=== PATIENT | female | born 1995 | race Caucasian/White ===

== ENCOUNTER → 2020-07-11 07:31 | Outpatient (CLI) | payer BC, SELFPAY ==
--- NOTE | ~2020-07-11 | US_ITS ---
EXAMINATION: US right upper quadrant EXAM DATE: 07/11/2020 08:12 INDICATION: RUQ pain. TECHNIQUE: Multiple grayscale and Doppler images of the abdomen right upper quadrant were obtained (b y a technologist who performed the scan) and subsequently reviewed. Comparison is made to prior exami nation from 09/02/2016. FINDINGS: The pancreatic head and body are normal in appearance. The pancreatic tail is not visualized. The l iver has normal echogenicity and contour. Interval development of heterogeneous solid appearing region in the anterior aspect of the liver, amelia suring about 5.3 x 3.7 x 5.7 cm. Nonspecific liver lesion. This appears solid on ultrasound, an techn ologist also noted that patient had pain when scanning over the region. There is no evidence of intra hepatic biliary duct dilation. Portal venous flow was seen in the hepatopedal, normal direction and has normal Doppler waveform. No right-sided hydronephrosis. Common bile duct measures 3 mm, which is normal. The gallbladder wall is normal in thickness, with ex pected amount of distention. No sonographic evidence of pericholecystic fluid. There is no cholelit hiases. Technologist performing exam reports patient did not demonstrate sonographic Nesbitt's sign. Please note that this sign is less reliable in patients who have received pain medication. IMPRESSION: Interval development of 5 cm liver mass like region, differential diagnosis includes hepa tic adenoma, hemangioma, or possibly phlegmon or hepatocellular carcinoma. Lesions are nonspecific by ultrasound and dedicated MRI without and with contrast typically adds more specificity, is indicated . Reviewed, dictated and finalized at location A. ING MECHANIC IMPRESSION: Interval development of 5 cm liver mass like region, differential d iagnosis includes hepatic adenoma, hemangioma, or possibly phlegmon or hepatoce llular carcinoma. Lesions are nonspecific by ultrasound and dedicated MRI witho ut and with contrast typically adds more specificity, is indicated.
== END ==
PROVIDERS: Visit Provider Nurse Practitioner
DX: R10.11 Right upper quadrant pain (principal)
CPT/HCPCS: 76705

== ENCOUNTER → 2020-07-17 10:38 | Outpatient (CLI) | payer BC, SELFPAY ==
--- NOTE | ~2020-07-17 | MR_ITS ---
EXAMINATION: MR abdomen wo/w con DATE: 07/17/2020 11:28 INDICATION: Liver mass. TECHNIQUE: Magnetic resonance imaging (MRI) of the abdomen was performed without and with 15 mL Multi Pierre intravenous contrast. Sequences included coronal T2-weighted FS FSE, coronal and axial FS FIEST A, axial T2-weighted FSE, coronal LAVA-flex, axial STIR FSE, axial DWI, axial dual-echo T1-weighted F SPGR, and axial LAVA. Postcontrast sequences included coronal LAVA-flex and a time course of axial LA VA. COMPARISON: Abdomen ultrasound 07/11/2020 FINDINGS: There is a 5.7 x 4.2 cm arterially enhancing mass with central scar in right hepatic lobe. No washout . The central scar demonstrates late enhancement. The mass is isointense to normal liver on precontra st T1 and T2-weighted images. These findings are consistent with focal nodular hyperplasia. The gallb ladder, spleen, pancreas, adrenal glands, and kidneys are normal. There are no dilated loops of bowel . There are no pathologically enlarged lymph nodes. There is no free intraperitoneal fluid. IMPRESSION: 1. 5.7 cm liver mass, consistent with focal nodular hyperplasia. Reviewed, dictated and finalized at location A. RIAL COUNSELOR
[2020-07-17 11:02] LABS: Estimated Glomerular Filt Rate > 60
== END ==
PROVIDERS: Visit Provider Obstetrics & Gynecology Gynecology
DX: R93.2 Abnormal findings on diagnostic imaging of liver and biliary tract (principal); K76.89 Other specified diseases of liver
CPT/HCPCS: 74183; A9577

== ENCOUNTER 2021-12-29 02:02 | Day surgery (SDC) | payer BC, SELFPAY ==
[2021-12-16 12:40] VITALS: BMI 33.7
--- NOTE | 2021-12-29 10:44 | PM.HPGS ---
History of Present Illness History of Present Illness Consent: Risks, benefits, and alternatives have been discussed and questions answered. Patient agrees to proceed with procedure. Chief complaint: nausea, vomiting Narrative: Lizeth Lucas is a 26 year old female Chronic and persistent nausea. She has been on Reglan and also Zofran. She took Reglan for a while a little over year ago but was discontinued for fear of side effects. She had stopped taking Victoza last year about the time that I had seen her and she states that actually her symptoms all subsided until about 4 months ago. Now she is again having nausea which is random, not related to meals. When that happens she will vomit and may bring up simply bile or sometimes food. After she vomits her symptoms subside relatively quickly. She also has right upper quadrant pain. Her symptoms do not seem to have any relation to what she is eating. There is no weight loss so far. Review of Systems Review of Systems: All systems reviewed & are unremarkable except as noted in HPI and below PMFSH Past Medical History Medical History Anxiety Depression GERD (gastroesophageal reflux disease) Hyperlipidemia Liver mass PCOS (polycystic ovarian syndrome) Social History Social History Smoking status: Never smoker Alcohol intake: current Drinks per week: 1 Substance use type: does not use Living arrangements: alone Spiritual care concerns: No Meds Home Medications and Allergies Home Medications Medication Instructions Recorded Confirmed Type drospirenone 3 mg-ethinyl 1 tablet PO DAILY 10/29/20 12/29/21 History estradiol 0.02 mg tablet fluoxetine 20 mg capsule 30 mg PO DAILY 10/29/20 12/29/21 History hydroxyzine HCl 25 mg tablet 25 mg PO BID PRN 10/29/20 12/29/21 History ondansetron HCl 4 mg tablet 4 mg PO Q8H 10/29/20 12/29/21 History alprazolam 0.5 mg PO Q6-12H PRN 12/16/21 12/29/21 History metformin 500 mg PO DAILY 12/16/21 12/29/21 History Allergies Allergy/AdvReac Type Severity Reaction Status Date / Time No Known Allergies Allergy Verified 12/29/21 11:12 Exam Const: General: alert Orientation/consciousness: patient oriented x3 Resp: Auscultation: clear to auscultation bilaterally Cardio: Rhythm: regular rhythm GI: GI Palp: Yes Soft to palpation and No Tenderness to palpation present (GI) Neuro: General: patient oriented x3 Assessment and Plan Assessment and plan (1) Nausea & vomiting: Code(s): R11.2 - Nausea with vomiting, unspecified Status: Acute Assessment and Plan: EGD with possible biopsy or dilatation or cautery.
[2021-12-29 11:04] VITALS: BP 138/69; PULSE 74; RESP 16; TEMP 36.7; O2SAT 100; BMI 34.3
[2021-12-29 11:17] VITALS: BP 138/69; PULSE 74; RESP 16; TEMP 36.7; O2SAT 100
--- NOTE | 2021-12-29 11:20 | P.PNAN_ITS ---
Anes - Initial Pre Proc Eval Procedure: Operation Date: 12/29/21 12:30 Proposed Procedures p Esophagogastroduodenoscopy - Khris Coffey MD Date/Time: 12/29/21 11:20 Surgeon: Khris Coffey MD Pre Op Diagnosis: nausea, vomiting Patient Data Age: 26 Gender: F Height: 1.6 m Weight: 86.5 kg Last Vital Signs Temp 36.7 C 12/29/21 11:17 Pulse 74 12/29/21 11:17 Resp 16 12/29/21 11:17 BP 138/69 12/29/21 11:17 Pulse Ox 100 12/29/21 11:17 Allergies Allergy/AdvReac Type Severity Reaction Status Date / Time No Known Allergies Allergy Verified 12/29/21 11:12 Home Medications Medication Instructions Recorded Confirmed Type drospirenone 3 mg-ethinyl 1 tablet PO DAILY 10/29/20 12/29/21 History estradiol 0.02 mg tablet fluoxetine 20 mg capsule 30 mg PO DAILY 10/29/20 12/29/21 History hydroxyzine HCl 25 mg tablet 25 mg PO BID PRN 10/29/20 12/29/21 History ondansetron HCl 4 mg tablet 4 mg PO Q8H 10/29/20 12/29/21 History alprazolam 0.5 mg PO Q6-12H PRN 12/16/21 12/29/21 History metformin 500 mg PO DAILY 12/16/21 12/29/21 History Patient hx anesthesia problems: none Family hx anesthesia problems: none Results Review: All pre-operative results and documents have been reviewed as part of the pre-operative evaluation. [facility] Past Medical History Medical History (Updated 12/29/21 @ 11:20 by Nghia Farmer DO) Anxiety Depression GERD (gastroesophageal reflux disease) Hyperlipidemia Liver mass PCOS (polycystic ovarian syndrome) Social History Social History Smoking status: Never smoker Alcohol intake: current Drinks per week: 1 Substance use type: does not use Living arrangements: alone Spiritual care concerns: No Anes - Eval Final PreProcedure Day of Procedure 12/29/21 11:20 Patient weight: obese Heart: regular rate and rhythm Lungs: clear to auscultation and normal air movement Airway: Mallampati scale class II Neurological: alert and oriented Last oral intake: >/= 8 hours ASA classification: III Emergent: no Anesthetic plan: proceed Anesthesia type and monitoring: general GIVS and standard monitoring Results Review: All pre-operative results and documents have been reviewed as part of the pre-operative evaluation. Informed Consent: The patient's anesthetic plan and its attendant risks and benefits were discussed with the patient/family/POA. Questions were solicited and answers provided to the satisfaction of the patient/family/POA.
[2021-12-29 11:30] LABS: Glucose Point of Care 85 mg/dl (65-105)
[2021-12-29] MEDS: LACTATED RINGERS 1,000 ML 150 ML IV CONT (11:51)
[2021-12-29 12:08] VITALS: BP 95/44; PULSE 68; RESP 22; O2SAT 99
[2021-12-29 12:18] VITALS: BP 107/58; PULSE 65; RESP 24; O2SAT 100
[2021-12-29 12:28] VITALS: BP 112/64; PULSE 67; RESP 22; O2SAT 100
== END 2021-12-29 12:52 | disposition home or self-care (01) ==
PROVIDERS: PCP Family Medicine Adolescent Medicine; Visit Provider Internal Medicine Gastroenterology
PROC: 0DJ08ZZ Inspection of Upper Intestinal Tract, Via Natural or Artificial Opening Endoscopic (ICD-10-PCS; CPT 43235; principal; 2021-12-29 12:30)
DX: R11.2 Nausea with vomiting, unspecified (principal); K21.00 Gastro-esophageal reflux disease with esophagitis, without bleeding; K29.80 Duodenitis without bleeding; E78.5 Hyperlipidemia, unspecified; E28.2 Polycystic ovarian syndrome; R16.0 Hepatomegaly, not elsewhere classified; F32.A Depression, unspecified; F41.9 Anxiety disorder, unspecified
CPT/HCPCS: 43239; 82948; 87081; 88305; J2704; J7120